=== PATIENT | male | born 1950 | race Caucasian/White ===

== ENCOUNTER → 2016-03-31 | Outpatient (CLI) | payer BC ==
[2016-03-31 11:32] VITALS: BP 138/78
== END ==
LOC: MHUC 11:10
PROVIDERS: ATTEND Physician Assistant
DX: R05 Cough (principal)
CPT/HCPCS: 99213

== ENCOUNTER → 2016-07-02 | Outpatient (CLI) | payer BC ==
[~2016-07-02] MED LIST: ASP81CT PO; BENZ-22 PO; CEFD300C PO; FENO145T2 PO; FLUT16SP NS; MED FOR DEPRESSION PO; PRED20TA PO
[2016-07-02 11:00] VITALS: BP 130/70
--- NOTE | 2016-07-02 11:00 | Urgent Care T Sheet Gen (E) ---
Intake General Temperature (Fahrenheit): 98.1 Pulse: 93 Blood Pressure Systolic: 130 Blood Pressure Diastolic: 70 Respirations: 20 SPO2: 98 Chief Complaint: Ear/Nose/Throat Complaint Description of Symptoms Complain of a sinus infection x 2 days and sore throat. He gets chronic sinus infections and has been coughing and feels sinus pressure on his face and forehead, no other complaints. Sees Dr Solares but office wasn't answering when he called this am Source: Family (), Patient History of Present Illness Onset & Duration: Days Timing: Still present Severity: Moderate Associated Symptoms: Cough, Nasal congestion, Sinus congestion Recent Trauma: No Allergies: Coded Allergies: Penicillins (Unverified Allergy, Unknown, CONVULSIONS, 07/01/13) Home Meds Active Scripts Fluticasone Propionate 16 Gm [place].susp16 Gm NS DAILY #1 BTL 2 sprays each nare daily x 7 days Prov:AMANDA HOGAN APRN () 07/02/16 Cefdinir 300 Mg [id number] Mg PO BID Infection #20 CAP Ref 0 Prov:AMANDA HOGAN APRN () 07/02/16 Prednisone 20 Mg [id number] Mg PO DAILY #12 TAB Take 40mg po daily x 4 days then take 20mg po daily x 4 days then stop Prov:EDMOND ARORA 03/31/16 Benzonatate (Tessalon Perles)100 Mg [id number] Mg PO TID PRN COUGH #30 CAP Prov:EDMOND ARORA 03/31/16 Reported Medications [Med For Depression] No Conflict Check Po Daily 07/01/13 Fenofibrate Nanocrystallized (Tricor)145 Mg [id number] Mg PO DAILY 05/06/12 Aspirin (Baby Aspirin)81 Mg Tab.chew81 Mg PO DAILY 05/04/12 Respiratory Constitutional Symptoms: No Fever, Malaise EENTM: Nose Congestion Throat pain Other (sinus congestion) Respiratory: Cough Cardiovascular: No symptoms reported Gastrointestinal/Abdominal: No symptoms reported Musculoskeletal: No symptoms reported All Other Systems Reviewed Remaining Systems: All other systems reviewed with negative findings Past [id number]-[id number]-Vgvcaz Hx Patient's Social History Alcohol Use: Denies Use Recreational Drug Use: Denies Use Infectious Disease Exposure: No Recent foreign travel: No Surgeries/Hospitalizations Hospitalization/Surgery Hx: Heart Cath 2008 (clean) Bilateral cataract removal Tonsilectomy Colonoscopy 3yrs ago Respiratory Respiratory History: None Cardiovascular Cardiovascular History: Hypercholesterolemia Comment: STENTS Neuro/Muscular Neuro/Muscular History: Migraine, Vertigo/fainting Comment: migraines since childhood Reproductive System Sexually Transmitted Diseases: No Genitouinary Genitourinary History: None Gastrointestinal GI/Endocrine History: Nausea, Constipation Diabetes Diabetes: No HEENT Impaired Vision: Glasses Hearing Impaired: Hard of Hearing Integumentary Integumentary History: None Comment: 1 CM LACERATION LT PALM OF HAND Cancer History of Cancer?: No Psychosocial Behavior Disorders: None Blood Transfusions Hx of Blood transfusions: No Physical Exam Physical Exam General Appearance: WD/WN No apparent distress Eyes, Ears, Nose, Throat Ex: PERRL/EOMI TM abnormal (R) (dull fluid) TM abnormal (L) (dull fluid) Pharyngeal erythema (marked green drainage posterior pharynx) Neck Exam: Full range of motion Supple Normal inspectionNo Lymphadenopathy Respiratory Exam: Lungs clear Normal breath sounds No respiratory distress No accessory muscles used Cardiovascular Exam: Regular rate, rhythm No murmur Skin Exam: Normal color Warm/dry/intact No rashes Departure Urgent Care Impression Chief Complaint: UC Ear/Nose/Throat Complaint Impression: Primary Impression: Sinusitis Departure Disposition: HOME OR SELF-CARE Condition: Stable Referrals: MARIO SOLARES MD (PCP) Additional Instructions: Tylenol for pain or fever rest hydrate change tooth brush in 48 hours f/u Dr Solares if not improved They agree to plan of care. Scripts Fluticasone Propionate 16 Gm [place].susp16 Gm NS DAILY #1 BTL 2 sprays each nare daily x 7 days Prov:AMANDA HOGAN APRN () 07/02/16 Cefdinir 300 Mg [id number] Mg PO BID Infection #20 CAP Ref 0 Prov:AMANDA HOGAN APRN () 07/02/16 End of report . AMANDA HOGAN APRN () Jul 02, 2016 11:00
== END ==
LOC: MHUC 10:42
PROVIDERS: ATTEND Nurse Practitioner
DX: J32.9 Chronic sinusitis, unspecified (principal)
CPT/HCPCS: 99213